=== PATIENT | female | born 1975 | race African-American/Black ===

== ENCOUNTER 2023-03-21 07:55 | Inpatient (IN) | payer BC ==
[2023-03-21] MEDS ORDERED: Sodium Chloride 0.9% 1,000 ML IV ONE (08:24)
[2023-03-21] MEDS ORDERED: Ondansetron 4 MG/2 ML SDV IVPUSH ONE (08:24)
[2023-03-21] MEDS ORDERED: Acetaminophen 500 MG Tab PO ONE (08:24)
[2023-03-21] MEDS ORDERED: HYDROmorphone 0.5 MG/0.5 ML Syringe IVPUSH ONE ×2 (08:24→12:13)
[2023-03-21 08:43] LABS: BASOPHILS PERCENT AUTO 0.2 % (0.2-1.2); EOSINOPHILS PERCENT AUTO 0.2 % (0.0-4.0); HEMATOCRIT 34.2 % (33.0-47.0); HEMOGLOBIN 11.6 g/dL (12.0-16.0); IMMATURE GRAN ABSOLUTE AUTO 0.05 x10^3/uL (0.00-0.07); LYMPHOCYTES ABSOLUTE AUTO 1.8 x10^3/uL (1.0-4.8); LYMPHOCYTES PERCENT AUTO 16.3 % (25.0-50.0); MEAN CORPUSCULAR HEMOGLOBIN 26.4 pg (26.0-32.0); MEAN CORPUSCULAR HGB CONC 33.9 g/dL (32.0-36.0); MEAN CORPUSCULAR VOLUME 77.7 fL (78.0-93.0); MONOCYTES ABSOLUTE AUTO 0.9 x10^3/uL (0.0-0.8); MONOCYTES PERCENT AUTO 8.1 % (2.0-11.0); NEUTROPHILS ABSOLUTE AUTO 8.2 x10^3/uL (1.8-7.7); NEUTROPHILS PERCENT AUTO 74.7 % (50.0-80.0); PLATELET COUNT,PLT 319 x10^3/uL (130-400)
[2023-03-21 08:46] LABS: APPEARANCE,URINE CLEAR (CLEAR); BILIRUBIN,URINE NEGATIVE (NEGATIVE); COLOR,URINE YELLOW (YELLOW); GLUCOSE,URINE NEGATIVE (NEGATIVE); KETONES,URINE NEGATIVE (NEGATIVE); LEUKOCYTE ESTERASE,URINE NEGATIVE (NEGATIVE); NITRITE,URINE NEGATIVE (NEGATIVE); OCCULT BLOOD,URINE TRACE-LYSED (NEGATIVE); PROTEIN,URINE NEGATIVE (NEGATIVE)
[2023-03-21 08:57] LABS: BACTERIA,URINE RARE /HPF (NOT SEEN); MUCUS,URINE OCCASIONAL /LPF (NOT SEEN); RBC,URINE 0-5 /HPF (NOT SEEN); SQUAMOUS EPITHELIAL CELLS,UR OCCASIONAL /HPF (NOT SEEN); WBC,URINE 0-5 /HPF (NOT SEEN)
[2023-03-21 08:59] LABS: INR 0.9 (0.9-1.1); PROTHROMBIN TIME 10.1 SEC (9.5-12.2); PTT,PARTIAL THROMBOPLSTIN TIME 26.8 SEC (23.6-33.6)
[2023-03-21 09:00] LABS: LACTIC ACID 0.6 mmol/L (0.4-2.0)
[2023-03-21 09:06] LABS: A/G RATIO 0.62; ALANINE AMINOTRANSFERASE,ALT 113 U/L (14-59); ALBUMIN 3.1 g/dL (3.4-5.0); ALKALINE PHOSPHATASE 94 U/L (46-116); ANION GAP 14.9 mmol/L (5-15); ASPARTATE AMNIOTRANSFERASE,AST 61 U/L (15-37); BILIRUBIN TOTAL 0.4 mg/dL (0.2-1.0); BLOOD UREA NITROGEN,BUN 8 mg/dL (7-18); CALCIUM 8.9 mg/dL (8.5-10.1); CARBON DIOXIDE,CO2 25 mmol/L (21-32); CHLORIDE,CL 103 mmol/L (98-107); CREATININE 0.7 mg/dL (0.55-1.02); ESTIMATED GFR 109 mL/min (>=60); GLUCOSE RANDOM 92 mg/dL (70-99); POTASSIUM,K 3.9 mmol/L (3.5-5.1); PROTEIN TOTAL,TP 8.1 g/dL (6.4-8.2); SODIUM,NA 139 mmol/L (136-145)
[2023-03-21] MEDS ORDERED: Piperacillin/Tazobactam 3.375 GM in Sodium Chloride 0.9% 100 ML IV ONE (12:20)
[2023-03-21] MEDS: Acetaminophen 325 MG Tab PO PRN (15:08)
[2023-03-21] MEDS ORDERED: Morphine 2 MG/ML SYRINGE IVPUSH PRN (15:12)
[2023-03-21] MEDS: Doxycycline Monohydrate 100 MG Cap PO SCH ×2 (16:17→21:16)
[2023-03-21] MEDS: cefTRIAXone 1 GM Vial IVPUSH SCH (16:17)
[2023-03-21] MEDS: metroNIDAZOLE/Normal Saline 500 MG in Premix Bag 1 BAG IV SCH (16:17)
[2023-03-21] MEDS: Sodium Chloride 0.9% 10 ML Syringe FLUSH PRN ×2 (16:17→17:31)
[2023-03-21] MEDS ORDERED: Polyethylene Glycol 3350 Powder 17 GM Packet PO PRN (16:35)
[2023-03-21] MEDS ORDERED: Magnesium Hydroxide 400 MG/5 ML Susp 30 ML Cup PO PRN (16:35)
[2023-03-21] MEDS ORDERED: Ondansetron 4 MG/2 ML SDV IV PRN (16:35)
[2023-03-21] MEDS: methylPREDNISolone Sodium Succinate 40 MG/1 ML SDV IVPUSH SCH (17:31)
[2023-03-21] MEDS: Sodium Chloride 0.9% 1,000 ML IV SCH (17:39)
[2023-03-21] MEDS ORDERED: Iopamidol 612 MG/ML 100 ML Bottle IVPUSH ONE (18:00)
[2023-03-21] MEDS: Docusate Sodium 100 MG Cap PO SCH (21:16)
[2023-03-21] MEDS: oxyCODONE 5 MG Tab PO PRN (23:46)
[2023-03-22] MEDS: Sodium Chloride 0.9% 1,000 ML IV SCH ×3 (01:08→20:13)
[2023-03-22] MEDS: metroNIDAZOLE/Normal Saline 500 MG in Premix Bag 1 BAG IV SCH ×2 (03:21→14:23)
[2023-03-22 08:28] LABS: BASOPHILS PERCENT AUTO 0.2 % (0.2-1.2); HEMATOCRIT 31.6 % (33.0-47.0); HEMOGLOBIN 10.7 g/dL (12.0-16.0); IMMATURE GRAN ABSOLUTE AUTO 0.05 x10^3/uL (0.00-0.07); LYMPHOCYTES ABSOLUTE AUTO 1.7 x10^3/uL (1.0-4.8); LYMPHOCYTES PERCENT AUTO 13.9 % (25.0-50.0); MEAN CORPUSCULAR HEMOGLOBIN 26.8 pg (26.0-32.0); MEAN CORPUSCULAR HGB CONC 33.9 g/dL (32.0-36.0); MONOCYTES ABSOLUTE AUTO 0.9 x10^3/uL (0.0-0.8); MONOCYTES PERCENT AUTO 7.6 % (2.0-11.0); NEUTROPHILS ABSOLUTE AUTO 9.5 x10^3/uL (1.8-7.7); NEUTROPHILS PERCENT AUTO 77.9 % (50.0-80.0); PLATELET COUNT,PLT 345 x10^3/uL (130-400); WHITE BLOOD CELL COUNT,WBC 12.2 x10^3/uL (4.0-10.0)
[2023-03-22 08:50] LABS: A/G RATIO 0.57; ALBUMIN 2.7 g/dL (3.4-5.0); BILIRUBIN TOTAL 0.3 mg/dL (0.2-1.0); C-REACTIVE PROTEIN 7.76 mg/dL (<=0.50); CALCIUM 8.6 mg/dL (8.5-10.1); CREATININE 0.6 mg/dL (0.55-1.02); EST CRCL DRUG DOSING (CG) 115.14 mL/min; POTASSIUM,K 3.6 mmol/L (3.5-5.1); PROTEIN TOTAL,TP 7.4 g/dL (6.4-8.2)
[2023-03-22 08:51] LABS: ANION GAP 12.6 mmol/L (5-15)
[2023-03-22] MEDS: Docusate Sodium 100 MG Cap PO SCH ×2 (09:06→20:13)
[2023-03-22] MEDS: Doxycycline Monohydrate 100 MG Cap PO SCH ×2 (09:06→20:13)
[2023-03-22] MEDS: oxyCODONE 5 MG Tab PO PRN ×2 (09:06→14:22)
[2023-03-22] MEDS: methylPREDNISolone Sodium Succinate 40 MG/1 ML SDV IVPUSH SCH (09:07)
[2023-03-22] MEDS: cefTRIAXone 1 GM Vial IVPUSH SCH (09:07)
[2023-03-22] MEDS: Ketorolac 30 MG/ML SDV IVPUSH PRN (15:54)
[2023-03-23] MEDS: metroNIDAZOLE/Normal Saline 500 MG in Premix Bag 1 BAG IV SCH ×2 (02:14→14:16)
[2023-03-23] MEDS: Ketorolac 30 MG/ML SDV IVPUSH PRN ×2 (02:14→22:35)
[2023-03-23] MEDS: Sodium Chloride 0.9% 1,000 ML IV SCH (03:24)
[2023-03-23 07:20] LABS: BASOPHILS PERCENT AUTO 0.4 % (0.2-1.2); EOSINOPHILS PERCENT AUTO 0.1 % (0.0-4.0); HEMATOCRIT 32.6 % (33.0-47.0); HEMOGLOBIN 11.1 g/dL (12.0-16.0); IMMATURE GRAN ABSOLUTE AUTO 0.02 x10^3/uL (0.00-0.07); LYMPHOCYTES PERCENT AUTO 24.9 % (25.0-50.0); MEAN CORPUSCULAR HEMOGLOBIN 26.9 pg (26.0-32.0); MEAN CORPUSCULAR VOLUME 79.1 fL (78.0-93.0); MONOCYTES ABSOLUTE AUTO 0.5 x10^3/uL (0.0-0.8); MONOCYTES PERCENT AUTO 5.5 % (2.0-11.0); NEUTROPHILS ABSOLUTE AUTO 5.6 x10^3/uL (1.8-7.7); NEUTROPHILS PERCENT AUTO 68.9 % (50.0-80.0); PLATELET COUNT,PLT 385 x10^3/uL (130-400); RED BLOOD CELL COUNT 4.12 x10^6/uL (4.00-5.50); WHITE BLOOD CELL COUNT,WBC 8.2 x10^3/uL (4.0-10.0)
[2023-03-23 07:33] LABS: A/G RATIO 0.58; ALBUMIN 2.9 g/dL (3.4-5.0); BILIRUBIN TOTAL 0.2 mg/dL (0.2-1.0); C-REACTIVE PROTEIN 3.34 mg/dL (<=0.50); CALCIUM 8.9 mg/dL (8.5-10.1); CREATININE 0.6 mg/dL (0.55-1.02); EST CRCL DRUG DOSING (CG) 115.14 mL/min; POTASSIUM,K 3.4 mmol/L (3.5-5.1); PROTEIN TOTAL,TP 7.9 g/dL (6.4-8.2)
[2023-03-23 07:34] LABS: ANION GAP 13.4 mmol/L (5-15)
[2023-03-23] MEDS ORDERED: Sodium Chloride 0.9% 10 ML Syringe FLUSH PRN (08:14)
[2023-03-23] MEDS: Docusate Sodium 100 MG Cap PO SCH ×2 (08:21→20:04)
[2023-03-23] MEDS: cefTRIAXone 1 GM Vial IVPUSH SCH (08:21)
[2023-03-23] MEDS: Doxycycline Monohydrate 100 MG Cap PO SCH ×2 (08:21→20:04)
[2023-03-23] MEDS: methylPREDNISolone Sodium Succinate 40 MG/1 ML SDV IVPUSH SCH (08:21)
[2023-03-23] MEDS ORDERED: Potassium Chloride 10 MEQ Tab.ER PO ONE (08:23)
[2023-03-23] MEDS: Enoxaparin 40 MG/0.4 ML Syringe SUBCUT SCH (09:41)
[2023-03-24] MEDS: metroNIDAZOLE/Normal Saline 500 MG in Premix Bag 1 BAG IV SCH (03:21)
[2023-03-24 07:04] LABS: BASOPHILS PERCENT AUTO 0.3 % (0.2-1.2); EOSINOPHILS PERCENT AUTO 0.3 % (0.0-4.0); HEMATOCRIT 32.4 % (33.0-47.0); HEMOGLOBIN 10.8 g/dL (12.0-16.0); IMMATURE GRAN ABSOLUTE AUTO 0.04 x10^3/uL (0.00-0.07); LYMPHOCYTES ABSOLUTE AUTO 2.7 x10^3/uL (1.0-4.8); LYMPHOCYTES PERCENT AUTO 35.9 % (25.0-50.0); MEAN CORPUSCULAR HEMOGLOBIN 26.3 pg (26.0-32.0); MEAN CORPUSCULAR HGB CONC 33.3 g/dL (32.0-36.0); MEAN CORPUSCULAR VOLUME 78.8 fL (78.0-93.0); MONOCYTES ABSOLUTE AUTO 0.6 x10^3/uL (0.0-0.8); MONOCYTES PERCENT AUTO 7.7 % (2.0-11.0); NEUTROPHILS ABSOLUTE AUTO 4.2 x10^3/uL (1.8-7.7); NEUTROPHILS PERCENT AUTO 55.3 % (50.0-80.0); PLATELET COUNT,PLT 411 x10^3/uL (130-400); RED BLOOD CELL COUNT 4.11 x10^6/uL (4.00-5.50); WHITE BLOOD CELL COUNT,WBC 7.5 x10^3/uL (4.0-10.0)
[2023-03-24 07:23] LABS: A/G RATIO 0.57; ALBUMIN 2.8 g/dL (3.4-5.0); BILIRUBIN TOTAL 0.1 mg/dL (0.2-1.0); C-REACTIVE PROTEIN 1.62 mg/dL (<=0.50); CALCIUM 8.9 mg/dL (8.5-10.1); CREATININE 0.7 mg/dL (0.55-1.02); EST CRCL DRUG DOSING (CG) 98.69 mL/min; MAGNESIUM 1.9 mg/dL (1.8-2.4); POTASSIUM,K 3.4 mmol/L (3.5-5.1); PROTEIN TOTAL,TP 7.7 g/dL (6.4-8.2)
[2023-03-24 07:24] LABS: ANION GAP 14.4 mmol/L (5-15)
[2023-03-24] MEDS: Acetaminophen 325 MG Tab PO PRN (08:00)
[2023-03-24] MEDS: cefTRIAXone 1 GM Vial IVPUSH SCH (08:00)
[2023-03-24] MEDS: Enoxaparin 40 MG/0.4 ML Syringe SUBCUT SCH (08:01)
[2023-03-24] MEDS: Docusate Sodium 100 MG Cap PO SCH (08:02)
[2023-03-24] MEDS: Doxycycline Monohydrate 100 MG Cap PO SCH (08:02)
[2023-03-24] MEDS ORDERED: Ibuprofen 200 MG Tab PO PRN (08:17)
[2023-03-24] MEDS ORDERED: Potassium Chloride 10 MEQ Tab.ER PO ONE (08:20)
[2023-03-24] MEDS ORDERED: metroNIDAZOLE 500 MG Tab PO SCH (08:30)
== END 2023-03-24 12:35 | disposition home or self-care (01) | DRG 466 ==
LOC: VM.ED 07:55 → VM.MS 14:22
PROVIDERS: ADMIT Nurse Practitioner Family; ATTEND Family Medicine
DX: N99.89 Other postprocedural complications and disorders of genitourinary system (principal); N73.9 Female pelvic inflammatory disease, unspecified; E86.0 Dehydration; K59.00 Constipation, unspecified; R51.9 Headache, unspecified; I10 Essential (primary) hypertension; E87.6 Hypokalemia; D57.1 Sickle-cell disease without crisis; E78.00 Pure hypercholesterolemia, unspecified; I69.351 Hemiplegia and hemiparesis following cerebral infarction affecting right dominant side; R33.9 Retention of urine, unspecified; E66.9 Obesity, unspecified; Y83.8 Other surgical procedures as the cause of abnormal reaction of the patient, or of later complication, without mention of misadventure at the time of the procedure; N92.0 Excessive and frequent menstruation with regular cycle; D50.9 Iron deficiency anemia, unspecified; Z98.890 Other specified postprocedural states; Z90.710 Acquired absence of both cervix and uterus; Z88.2 Allergy status to sulfonamides; Z88.8 Allergy status to other drugs, medicaments and biological substances
CPT/HCPCS: 36415; 70450; 74177; 80053; 81001; 83605; 83735; 85025; 85610; 85730; 86140; 87040; 96361; 96365; 96375; 96376; 99284; 99285-25; A9270-GY; J0696; J1170; J1650; J1836; J1885; J2405; J2543; J2920; J3490; J7030; Q9967

== ENCOUNTER 2023-04-10 11:37 | Emergency (ER) | payer BC ==
[2023-04-10] MEDS ORDERED: Sodium Chloride 0.9% 10 ML Syringe FLUSH PRN (12:03)
[2023-04-10] MEDS ORDERED: Lactated Ringers 1,000 ML IV ONE (12:04)
[2023-04-10 12:42] LABS: BASOPHILS PERCENT AUTO 0.3 % (0.2-1.2); EOSINOPHILS PERCENT AUTO 0.5 % (0.0-4.0); HEMOGLOBIN 12.7 g/dL (12.0-16.0); IMMATURE GRAN ABSOLUTE AUTO 0.01 x10^3/uL (0.00-0.07); LYMPHOCYTES ABSOLUTE AUTO 1.8 x10^3/uL (1.0-4.8); LYMPHOCYTES PERCENT AUTO 45.5 % (25.0-50.0); MEAN CORPUSCULAR HEMOGLOBIN 26.1 pg (26.0-32.0); MEAN CORPUSCULAR HGB CONC 33.4 g/dL (32.0-36.0); MEAN CORPUSCULAR VOLUME 78.2 fL (78.0-93.0); MONOCYTES ABSOLUTE AUTO 0.3 x10^3/uL (0.0-0.8); MONOCYTES PERCENT AUTO 8.3 % (2.0-11.0); NEUTROPHILS ABSOLUTE AUTO 1.8 x10^3/uL (1.8-7.7); NEUTROPHILS PERCENT AUTO 45.1 % (50.0-80.0); PLATELET COUNT,PLT 165 x10^3/uL (130-400); RED BLOOD CELL COUNT 4.86 x10^6/uL (4.00-5.50)
[2023-04-10 13:01] LABS: LACTIC ACID 1.1 mmol/L (0.4-2.0)
[2023-04-10 13:11] LABS: A/G RATIO 0.71; ALANINE AMINOTRANSFERASE,ALT 26 U/L (14-59); ALBUMIN 3.5 g/dL (3.4-5.0); ALKALINE PHOSPHATASE 59 U/L (46-116); ANION GAP 14.8 mmol/L (5-15); ASPARTATE AMNIOTRANSFERASE,AST 18 U/L (15-37); BILIRUBIN TOTAL 0.3 mg/dL (0.2-1.0); BLOOD UREA NITROGEN,BUN 9 mg/dL (7-18); CALCIUM 9.5 mg/dL (8.5-10.1); CARBON DIOXIDE,CO2 26 mmol/L (21-32); CHLORIDE,CL 103 mmol/L (98-107); CREATININE 0.7 mg/dL (0.55-1.02); ESTIMATED GFR 109 mL/min (>=60); GLUCOSE RANDOM 95 mg/dL (70-99); MAGNESIUM 1.9 mg/dL (1.8-2.4); POTASSIUM,K 3.8 mmol/L (3.5-5.1); PROTEIN TOTAL,TP 8.4 g/dL (6.4-8.2); SODIUM,NA 140 mmol/L (136-145)
== END 2023-04-10 13:39 | disposition home or self-care (01) ==
LOC: VM.ED 11:37
DX: E86.0 Dehydration (principal); I25.10 Atherosclerotic heart disease of native coronary artery without angina pectoris; Z88.2 Allergy status to sulfonamides; Z91.040 Latex allergy status
CPT/HCPCS: 80053; 83605; 83735; 84484; 85025; 93005; 93010; 99284

== ENCOUNTER 2023-09-24 15:03 | Emergency (ER) | payer BC ==
[2023-09-24] MEDS ORDERED: Sodium Chloride 0.9% 10 ML Syringe FLUSH PRN (15:18)
[2023-09-24 15:49] LABS: BASOPHILS PERCENT AUTO 0.2 % (0.2-1.2); EOSINOPHILS PERCENT AUTO 0.8 % (0.0-4.0); HEMATOCRIT 36.6 % (33.0-47.0); HEMOGLOBIN 12.5 g/dL (12.0-16.0); LYMPHOCYTES ABSOLUTE AUTO 2.7 x10^3/uL (1.0-4.8); LYMPHOCYTES PERCENT AUTO 52.9 % (25.0-50.0); MEAN CORPUSCULAR HEMOGLOBIN 26.2 pg (26.0-32.0); MEAN CORPUSCULAR HGB CONC 34.2 g/dL (32.0-36.0); MEAN CORPUSCULAR VOLUME 76.6 fL (78.0-93.0); MONOCYTES ABSOLUTE AUTO 0.4 x10^3/uL (0.0-0.8); NEUTROPHILS PERCENT AUTO 39.1 % (50.0-80.0); PLATELET COUNT,PLT 283 x10^3/uL (130-400); RED BLOOD CELL COUNT 4.78 x10^6/uL (4.00-5.50); WHITE BLOOD CELL COUNT,WBC 5.1 x10^3/uL (4.0-10.0)
[2023-09-24 16:07] LABS: PROTHROMBIN TIME 9.7 SEC (8.9-11.5); PTT,PARTIAL THROMBOPLSTIN TIME 25.2 SEC (21.9-33.8)
[2023-09-24 16:10] LABS: A/G RATIO 0.78; ALANINE AMINOTRANSFERASE,ALT 29 U/L (14-59); ALBUMIN 3.5 g/dL (3.4-5.0); ALKALINE PHOSPHATASE 58 U/L (46-116); ASPARTATE AMNIOTRANSFERASE,AST 18 U/L (15-37); BILIRUBIN TOTAL 0.2 mg/dL (0.2-1.0); BLOOD UREA NITROGEN,BUN 10 mg/dL (7-18); CALCIUM 9.3 mg/dL (8.5-10.1); CARBON DIOXIDE,CO2 27 mmol/L (21-32); CHLORIDE,CL 103 mmol/L (98-107); CREATININE 0.8 mg/dL (0.55-1.02); GLUCOSE RANDOM 101 mg/dL (70-99); POTASSIUM,K 3.7 mmol/L (3.5-5.1); SODIUM,NA 140 mmol/L (136-145)
[2023-09-24 16:11] LABS: ANION GAP 13.7 mmol/L (5-15); ESTIMATED GFR 92 mL/min (>=60)
[2023-09-24] MEDS: Metoclopramide 10 MG/2 ML SDV IVPUSH ONE (17:14)
[2023-09-24] MEDS: Ketorolac 30 MG/ML SDV IVPUSH ONE (17:14)
[2023-09-24] MEDS: Lactated Ringers 1,000 ML IV ONE (17:14)
[2023-09-24] MEDS: diphenhydrAMINE 50 MG/ML SDV IVPUSH ONE (17:15)
== END 2023-09-24 19:08 | disposition home or self-care (01) ==
LOC: VM.ED 15:03
DX: G43.909 Migraine, unspecified, not intractable, without status migrainosus (principal); I10 Essential (primary) hypertension; D57.3 Sickle-cell trait; Z79.899 Other long term (current) drug therapy; Z91.040 Latex allergy status; Z88.2 Allergy status to sulfonamides; Z88.8 Allergy status to other drugs, medicaments and biological substances; Z88.6 Allergy status to analgesic agent
CPT/HCPCS: 36415; 70450; 80053; 82947; 84484; 85025; 85610; 85730; 93005; 96361; 96374; 96375; 99285; J1200; J1885; J2765; J7120

== ENCOUNTER 2023-10-29 08:05 | Emergency (ER) | payer BC ==
[2023-10-29] MEDS: diphenhydrAMINE 50 MG/ML SDV IVPUSH ONE (08:42)
[2023-10-29] MEDS: Ketorolac 30 MG/ML SDV IM ONE (08:43)
[2023-10-29] MEDS: Prochlorperazine 10 MG/2 ML SDV IM ONE (08:43)
== END 2023-10-29 09:05 | disposition home or self-care (01) ==
LOC: VM.ED 08:05
DX: G44.209 Tension-type headache, unspecified, not intractable (principal); I10 Essential (primary) hypertension; E66.9 Obesity, unspecified; Z79.899 Other long term (current) drug therapy; Z79.891 Long term (current) use of opiate analgesic; Z88.2 Allergy status to sulfonamides; Z91.040 Latex allergy status; Z88.8 Allergy status to other drugs, medicaments and biological substances
CPT/HCPCS: 96372; 96374; 99283-25; J0780; J1200; J1885

== ENCOUNTER 2023-10-31 11:13 | Emergency (ER) | payer BC ==
[2023-10-31 12:41] LABS: BASOPHILS PERCENT AUTO 0.4 % (0.2-1.2); EOSINOPHILS PERCENT AUTO 0.8 % (0.0-4.0); HEMATOCRIT 40.7 % (33.0-47.0); HEMOGLOBIN 14.1 g/dL (12.0-16.0); IMMATURE GRAN ABSOLUTE AUTO 0.01 x10^3/uL (0.00-0.07); LYMPHOCYTES ABSOLUTE AUTO 2.4 x10^3/uL (1.0-4.8); LYMPHOCYTES PERCENT AUTO 49.1 % (25.0-50.0); MEAN CORPUSCULAR HEMOGLOBIN 26.6 pg (26.0-32.0); MEAN CORPUSCULAR HGB CONC 34.6 g/dL (32.0-36.0); MEAN CORPUSCULAR VOLUME 76.8 fL (78.0-93.0); MONOCYTES ABSOLUTE AUTO 0.4 x10^3/uL (0.0-0.8); MONOCYTES PERCENT AUTO 7.2 % (2.0-11.0); NEUTROPHILS ABSOLUTE AUTO 2.1 x10^3/uL (1.8-7.7); NEUTROPHILS PERCENT AUTO 42.3 % (50.0-80.0); PLATELET COUNT,PLT 249 x10^3/uL (130-400); WHITE BLOOD CELL COUNT,WBC 4.9 x10^3/uL (4.0-10.0)
[2023-10-31 12:59] LABS: A/G RATIO 0.83; ALBUMIN 3.8 g/dL (3.4-5.0); BILIRUBIN TOTAL 0.2 mg/dL (0.2-1.0); CALCIUM 9.4 mg/dL (8.5-10.1); CREATININE 0.8 mg/dL (0.55-1.02); EST CRCL DRUG DOSING (CG) 85.45 mL/min; POTASSIUM,K 3.7 mmol/L (3.5-5.1); PROTEIN TOTAL,TP 8.4 g/dL (6.4-8.2)
[2023-10-31 13:01] LABS: ANION GAP 15.7 mmol/L (5-15)
[2023-10-31 13:18] LABS: CORONAVIRUS COVID-19 NAA NEGATIVE (NEGATIVE); INFLUENZA A NAA NEGATIVE (NEGATIVE); INFLUENZA B NAA NEGATIVE (NEGATIVE); RESPIRATORY SYNCYTIAL VIR NAA NEGATIVE (NEGATIVE)
[2023-10-31] MEDS: Prochlorperazine 10 MG/2 ML SDV IM ONE (14:00)
[2023-10-31] MEDS: Ketorolac 30 MG/ML SDV IM ONE (14:00)
[2023-10-31] MEDS: diphenhydrAMINE 50 MG/ML SDV IM ONE (14:00)
== END 2023-10-31 14:15 | disposition home or self-care (01) ==
LOC: VM.ED 11:13
DX: I10 Essential (primary) hypertension (principal); R51.9 Headache, unspecified; Z90.710 Acquired absence of both cervix and uterus; Z91.040 Latex allergy status; Z88.2 Allergy status to sulfonamides; Z88.8 Allergy status to other drugs, medicaments and biological substances
CPT/HCPCS: 0241U; 36415; 70450; 80053; 84484; 85025; 93005; 96372; 99284; J0780; J1200; J1885

== ENCOUNTER 2024-07-13 02:00 | Emergency (ER) | payer BC ==
[2024-07-13] MEDS: Acetaminophen/oxyCODONE 325-5 MG Tab PO ONE (02:27)
[2024-07-13 02:48] LABS: BASOPHILS PERCENT AUTO 0.2 % (0.2-1.2); EOSINOPHILS PERCENT AUTO 0.4 % (0.0-4.0); HEMATOCRIT 40.5 % (33.0-47.0); IMMATURE GRAN ABSOLUTE AUTO 0.01 x10^3/uL (0.00-0.07); LYMPHOCYTES ABSOLUTE AUTO 2.7 x10^3/uL (1.0-4.8); LYMPHOCYTES PERCENT AUTO 54.8 % (25.0-50.0); MEAN CORPUSCULAR HEMOGLOBIN 28.1 pg (26.0-32.0); MEAN CORPUSCULAR HGB CONC 34.6 g/dL (32.0-36.0); MEAN CORPUSCULAR VOLUME 81.2 fL (78.0-93.0); MONOCYTES ABSOLUTE AUTO 0.3 x10^3/uL (0.0-0.8); MONOCYTES PERCENT AUTO 5.7 % (2.0-11.0); NEUTROPHILS ABSOLUTE AUTO 1.9 x10^3/uL (1.8-7.7); NEUTROPHILS PERCENT AUTO 38.7 % (50.0-80.0); PLATELET COUNT,PLT 226 x10^3/uL (130-400); RED BLOOD CELL COUNT 4.99 x10^6/uL (4.00-5.50); WHITE BLOOD CELL COUNT,WBC 4.9 x10^3/uL (4.0-10.0)
[2024-07-13 02:52] LABS: APPEARANCE,URINE CLEAR (CLEAR); BILIRUBIN,URINE NEGATIVE (NEGATIVE); COLOR,URINE YELLOW (YELLOW); GLUCOSE,URINE NEGATIVE (NEGATIVE); KETONES,URINE NEGATIVE (NEGATIVE); LEUKOCYTE ESTERASE,URINE NEGATIVE (NEGATIVE); NITRITE,URINE NEGATIVE (NEGATIVE); OCCULT BLOOD,URINE NEGATIVE (NEGATIVE); PROTEIN,URINE NEGATIVE (NEGATIVE)
[2024-07-13 03:06] LABS: A/G RATIO 0.89; ALANINE AMINOTRANSFERASE,ALT 25 U/L (14-59); ALBUMIN 3.9 g/dL (3.4-5.0); ALKALINE PHOSPHATASE 60 U/L (46-116); ASPARTATE AMNIOTRANSFERASE,AST 20 U/L (15-37); BILIRUBIN TOTAL 0.2 mg/dL (0.2-1.0); BLOOD UREA NITROGEN,BUN 12 mg/dL (7-18); CARBON DIOXIDE,CO2 26 mmol/L (21-32); CHLORIDE,CL 103 mmol/L (98-107); CREATININE 0.7 mg/dL (0.55-1.02); GLUCOSE RANDOM 88 mg/dL (70-99); LIPASE 37 U/L (19-71); POTASSIUM,K 3.9 mmol/L (3.5-5.1); PROTEIN TOTAL,TP 8.3 g/dL (6.4-8.2); SODIUM,NA 139 mmol/L (136-145)
[2024-07-13 03:07] LABS: ANION GAP 13.9 mmol/L (5-15); ESTIMATED GFR 107 mL/min (>=60)
[2024-07-13] MEDS: Magnesium Citrate Solution 296 ML Bottle PO ONE (04:47)
== END 2024-07-13 04:55 | disposition home or self-care (01) ==
LOC: VM.ED 02:00
DX: K59.00 Constipation, unspecified (principal); I10 Essential (primary) hypertension; Z88.8 Allergy status to other drugs, medicaments and biological substances; Z91.040 Latex allergy status; Z79.899 Other long term (current) drug therapy; Z90.710 Acquired absence of both cervix and uterus
CPT/HCPCS: 36415; 74176; 80053; 81003; 83690; 85025; 99284; A9270-GY